=== PATIENT | female | born 1980 | race Two or more races ===

== ENCOUNTER 2020-01-01 09:06 | Outpatient (CLI) | payer OTHER | END 2020-01-01 09:20 | disposition home or self-care (01) | LOC: EDBD 09:06 → TOM 09:06 | PROVIDERS: ATTEND General Practice | DX: N20.0 Calculus of kidney (principal) ==

== ENCOUNTER 2020-01-13 09:55 | Outpatient (CLI) | payer OTHER | END 2020-01-13 15:00 | disposition home or self-care (01) | LOC: EDBD 09:55 → LAB 09:55 | PROVIDERS: ATTEND Urology | DX: N20.1 Calculus of ureter (principal) ==

== ENCOUNTER 2020-01-13 10:19 | Outpatient (CLI) | payer OTHER | END 2020-01-13 10:21 | disposition home or self-care (01) | LOC: RAD 10:19 | PROVIDERS: ATTEND Urology | DX: N20.1 Calculus of ureter (principal) ==

== ENCOUNTER 2020-03-18 08:03 | Outpatient (CLI) | payer OTHER | END 2020-03-18 15:00 | disposition home or self-care (01) | LOC: LAB 08:03 | PROVIDERS: ATTEND Urology | DX: N20.1 Calculus of ureter (principal) ==

== ENCOUNTER 2020-03-26 09:02 | Outpatient (CLI) | payer OTHER | END 2020-03-26 09:10 | disposition home or self-care (01) | LOC: LAB 09:02 | PROVIDERS: ATTEND Urology | DX: N20.1 Calculus of ureter (principal) ==

== ENCOUNTER → 2020-08-05 07:34 | Outpatient (CLI) | payer OTHER | END | disposition home or self-care (01) | LOC: LAB 07:34 | PROVIDERS: ATTEND Obstetrics & Gynecology | DX: N92.1 Excessive and frequent menstruation with irregular cycle (principal); D50.9 Iron deficiency anemia, unspecified ==

== ENCOUNTER 2020-08-19 09:35 | Outpatient (CLI) | payer OTHER | END 2020-08-19 09:54 | disposition home or self-care (01) | LOC: MAMO-SONO 09:35 | PROVIDERS: ATTEND Obstetrics & Gynecology | DX: Z12.31 Encounter for screening mammogram for malignant neoplasm of breast (principal); N64.59 Other signs and symptoms in breast; N92.1 Excessive and frequent menstruation with irregular cycle; D64.89 Other specified anemias ==

== ENCOUNTER 2021-02-07 09:00 | Outpatient (CLI) | payer OTHER | END 2021-02-07 09:30 | disposition home or self-care (01) | LOC: PPH VACUNA 09:00 | PROVIDERS: ATTEND Emergency Medicine Pediatric Emergency Medicine | DX: Z23 Encounter for immunization (principal) ==